=== PATIENT | male | born 1945 | race Caucasian/White ===

== ENCOUNTER → 2017-01-14 | Outpatient (CLI) | payer MEDICARE | END | disposition home or self-care (01) | LOC: ROC 08:00 | PROVIDERS: ATTEND Radiology Radiation Oncology | DX: D35.2 Benign neoplasm of pituitary gland (principal) | CPT/HCPCS: G0463 ==

== ENCOUNTER → 2017-08-20 | Outpatient (CLI) | payer MEDICARE ==
[~2017-08-20] MED LIST: OMNIPAQUE 350 MG/ML, 100ML BOTTLE ONE
== END | disposition home or self-care (01) ==
LOC: CFH 08:58
PROVIDERS: ATTEND Radiology Radiation Oncology
DX: D35.2 Benign neoplasm of pituitary gland (principal); G31.89 Other specified degenerative diseases of nervous system
CPT/HCPCS: 70470; Q9967

== ENCOUNTER → 2017-09-02 | Outpatient (CLI) | payer MEDICARE | END | disposition home or self-care (01) | LOC: ROC 07:36 | PROVIDERS: ATTEND Radiology Radiation Oncology | DX: Z08 Encounter for follow-up examination after completed treatment for malignant neoplasm (principal); D35.2 Benign neoplasm of pituitary gland; H54.61 Unqualified visual loss, right eye, normal vision left eye | CPT/HCPCS: G0463 ==

== ENCOUNTER → 2018-09-20 | Outpatient (CLI) | payer MEDICARE | END | disposition home or self-care (01) | LOC: CFH 12:01 | PROVIDERS: ATTEND Radiology Radiation Oncology | DX: G31.9 Degenerative disease of nervous system, unspecified (principal); E23.6 Other disorders of pituitary gland; D35.2 Benign neoplasm of pituitary gland | CPT/HCPCS: 70470; Q9967 ==

== ENCOUNTER → 2018-09-22 | Outpatient (CLI) | payer MEDICARE | END | disposition home or self-care (01) | LOC: ROC 07:46 | PROVIDERS: ATTEND Radiology Radiation Oncology | DX: Z08 Encounter for follow-up examination after completed treatment for malignant neoplasm (principal); D35.2 Benign neoplasm of pituitary gland | CPT/HCPCS: G0463 ==

== ENCOUNTER 2020-09-14 10:19 | Outpatient (CLI) | payer MEDICARE ==
[2020-09-14] MEDS ORDERED: OMNIPAQUE 350 MG/ML, 100ML BOTTLE ONE (10:50)
== END 2020-09-14 23:59 | disposition home or self-care (01) ==
LOC: CFH 10:19
PROVIDERS: ATTEND Radiology Radiation Oncology
DX: D35.2 Benign neoplasm of pituitary gland (principal)
CPT/HCPCS: 70470; Q9967

== ENCOUNTER → 2020-09-18 | Outpatient (CLI) | payer MEDICARE | END | disposition home or self-care (01) | LOC: ROC 08:54 | PROVIDERS: ATTEND Radiology Radiation Oncology | DX: Z08 Encounter for follow-up examination after completed treatment for malignant neoplasm (principal); D35.2 Benign neoplasm of pituitary gland | CPT/HCPCS: G0463 ==